=== PATIENT | male | born 1965 | race Caucasian/White ===

== ENCOUNTER 2023-08-27 11:00 | Outpatient (AMB) | payer OTHER, SELFPAY ==
--- NOTE | 2023-08-27 11:18 | A.SPINEOV_ITS ---
Intake Intake Visit Reasons: low back pain Intake Note: Mr. Lazo is here today c/o left-sided low back pain. MRI @ [place]. 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 He is a very nice 49-year-old gentleman who presents for evaluation today of what is a left lumbar radiculopathy which starts in his buttock, wraps around down to his knee in goes into his anterior tibial region. He does have occasional chronic back pain which lingers with him routinely, but it is mild. The symptoms began a few years ago when he was on a trip to [place] and thought he slept wrong. When time to time they flare up and will be significant and severe. He had a flare-up this spring where he was in tremendous amount of pain and did undergo an injection by Dr. Martinez at [facility] and that brought the symptoms down somewhat. Over time the symptoms gradually get better. He still does deal with it on a routine basis but it is not as intense at this current time. He uses things like ibuprofen, Tylenol, naproxen. He has undergone physical therapy and as mentioned the cortisone injection. The symptoms are aggravated with activity and walking. PMH: He is otherwise healthy gentleman no medical problems, no heart attacks, strokes, kidney problems bleeding disorders etc. Social hx: He does not smoke Medications: Currently taking no routine medications Allergies: Penicillin and Cleocin Physical exam: Awake alert oriented, no acute distress, strength and reflexes normal Imaging review: He has a lumbar MRI done at [place] in 2022 which shows that he has a slight spondylolisthesis at L3-4 with facet arthropathy and foraminal narrowing the left L3 foramen. He also has moderate left L4 foraminal narrowing. No sent significant central canal stenosis. Standing flexion- extension x-rays done here in the office today show no signs of instability. Impression: 57-year-old gentleman presents to the office today with recurrent left leg radiculopathy radiating into his knee and his anterior tibial region likely related to his foraminal stenosis at the L3 or the L4 foramen as seen on the MRI. He has a spondylolisthesis but the flexion-extension x-rays here in the office today showed no signs of instability. He did have an injection in his back when he was having 1 of his flare-ups which helped significantly. I will get the records from [facility] to find out exactly where was injected to help us localize which area. Currently at this time he is not having all that much pain and things are manageable and his quality of life is relatively good. I told him that if the flare ups start to affect his quality of life or his ability to work that very likely Dr. Kasper would offer him some kind of intervention. I would like to confirm with the notes on the injection as to exactly where it was done anatomically on the spine. He will call us down the road let us know if things get worse. Thank you for allowing us to care for your patient. The total time spent with this visit with this patient was 45 minutes reviewing history, physical exam, lumbar imaging review, and implementation of treatment plan or further diagnostic testing Oni Kasper MD,PhD [facility] Orders: Orders XR lumbar spine 4V min Today M54.16 - Radiculopathy, lumbar region Coding Level of Care Code New Pt Level 4 (67252) Diagnoses Lumbar radiculopathy M54.16
== END 2023-08-27 12:55 | disposition home or self-care (01) ==
PROVIDERS: Referring Provider Family Medicine; Visit Provider Physician Assistant
DX: M54.16 Radiculopathy, lumbar region (principal)
CPT/HCPCS: 99204

== ENCOUNTER 2023-08-27 11:00 | Outpatient (REF) | payer OTHER, SELFPAY ==
--- NOTE | ~2023-08-27 | XR_ITS ---
EXAMINATION: XR LUMBOSACRAL SPINE WITH OBLIQUES CLINICAL INFORMATION: Lumbar radiculopathy. COMPARISON: None available. TECHNIQUE: AP and lateral views of the lumbar spine were obtained. Lateral views were obtained in flexion, extension, and neutral positions. FINDINGS: There is bony demineralization. There is a mild lumbar dextroscoliosis. The lumbar disc spaces are relatively well-maintained. No acute fracture or spondylolysis is seen. There is no instability with flexion or extension. There is multi-level mild thoracolumbar spondylosis. The posterior elements are intact. There are aortic atherosclerotic calcifications. Pelvic phleboliths are noted. No foreign body is seen. XR/XR lumbar spine 4V min IMPRESSION: 1. There is a mild lumbar dextroscoliosis. 2. The lumbar disc spaces are well-maintained. 3. There is multi-level mild thoracolumbar spondylosis. 4. No acute fracture or spondylolisthesis is seen. There is no instability with flexion or extension.
== END 2023-08-27 11:01 | disposition home or self-care (01) ==
LOC: HO.HOSX 11:00
PROVIDERS: Visit Provider Physician Assistant
DX: M54.16 Radiculopathy, lumbar region (principal); M43.16 Spondylolisthesis, lumbar region
CPT/HCPCS: 72110; 99202